=== PATIENT | male | born 1960 | race Caucasian/White ===

== ENCOUNTER → 2018-06-06 | Outpatient (CLI) | payer BC ==
[~2018-06-06] MED LIST: LIDOCAINE-MPF 1%, 5ML ONE; OMNIPAQUE 300 MG/ML, 10ML VIAL ONE; ROPivacaine/PF 0.2%, 10 ML ONE; SODIUM BICARBONATE 4.0%, 5ML ONE; SOTA160T13 PO; WARF10TA PO; WARF5TAB PO
== END | disposition home or self-care (01) ==
LOC: RAD 08:30
PROVIDERS: ATTEND Orthopaedic Surgery
DX: M75.111 Incomplete rotator cuff tear or rupture of right shoulder, not specified as traumatic (principal)
CPT/HCPCS: 73040; 73200; J2795; Q9967

== ENCOUNTER 2019-12-20 09:18 | Inpatient (IN) | payer BC, OTHER ==
[~2019-12-20] VITALS: Ht 175.3 cm; Wt 74.1 kg
[~2019-12-20 09:18] MED LIST changes: -LIDOCAINE-MPF 1%, 5ML ONE; -OMNIPAQUE 300 MG/ML, 10ML VIAL ONE; -ROPivacaine/PF 0.2%, 10 ML ONE; -SODIUM BICARBONATE 4.0%, 5ML ONE; -WARF5TAB PO; +WARF5TAB2 PO
[2019-12-20] MEDS ORDERED: LABETALOL 5MG/ML, 20ML IVPush ONE ×2 (09:30→10:30)
--- NOTE | 2019-12-20 09:30 | NUR ---
PT. ARRIVES BY [facility], AN IFT FROM [facility]. PT. IS A & O X 3 WITH A GCS OF 14. PT. HAS A 3 DAY HX OF [place] PAIN WITH INCREASING AMS SINCE LAST NOC. PT. WENT TO [facility] FOR EVALUATION AND WAS FOUND TO HAVE IN [facility]. HE WAS TRANSFERRED TO [facility] FOR A HIGHER LEVEL OF CARE AND NEUROSURGERY. PT.'S PUPILS ARE REACTIVE THE LEFT IS SLOWER THAN THE RIGHT. THE PT. STATES IT IS UNCOMFORTABLE FOR HIS TO OPEN HIS EYES WIDE. PT.'S SMILE IS SYMMETRICAL. HE IS ABLE TO HOLD HIS ARMS OUT WITHOUT EITHER DROPPING WELL HIS LEGS BILAT. HIS HAND GRASP ON THE LEFT IS SLIGHTLY WEAKER THAN THE RIGHT. PT.'S SENSATION IS INTACT THROUGHOUT. HIS LUNGS ARE CTA. MM ARE PINK AND MOIST WITH PULSES +2 THROUGHOUT. CAP REFILL IS BRISK, LESS THAN THREE SECONDS. PT.'S NECK IS MIDLINE WITHOUT JVD NOTED. CHEST RISE AND FALL IS SYMMETRICAL. S1 S2 NOTED WITHOUT MURMURS RUBS OR GALLOPS. PT. HAS AN INTERNAL PACEMAKER/DEFIBRILLATOR IN PLACE ON HIS LEFT CHEST. PT.'S ABD. IS SOFT AND FLAT WITH BS + X 4 QUADS. PT. IS ABLE TO MOVE ALL EXTREMITIES WNL. PT. DENIES PARATHESIA OR PAIN. THE PT. HAS THE CP MONITOR IN PLACE AND HIS HOB IS ELEVATED GREATER THAN 30 DEGREES. PT. HAS BLANKETS IN PLACE FOR WARMTH AND THE SIDERAILS ARE UP X 2. RN REMAINS AT THE BEDSIDE. THE PLAN OF CARE WAS DISCUSSED WITH THE PT. HAD HIS . NEUROSURG WARREN IS AT THE BEDSIDE CONSULTING. THE PT. WAS MEDICATED PER MD ORDERS AND A SECOND IV WAS ESTABLISHED. PT. ARRIVED WITH ONE IV IN PLACE AND PATENT, FROM THE SENDING FACILITY.
[2019-12-20] MEDS ORDERED: LABETALOL 5MG/ML, 20ML ONE ×2 (09:31→10:33)
[2019-12-20] MEDS ORDERED: NOVOSEVEN RT (FACTOR VIIA) RECOMB 1,000 MCG IVPush ONE (10:00)
[2019-12-20] MEDS ORDERED: BUPIVACAINE/PF-EPI 0.5% 1:200K ONE (10:08)
[2019-12-20] MEDS ORDERED: BACITRACIN OINT 500U/GM, 15 GM ONE (10:08)
--- NOTE | 2019-12-20 10:08 | NUR ---
PT. RETURNS FROM CT. PT. IS REMOVING HIS PULSE OX AND MASK. PT. WAS REORIENTED AND REMAINS MONITORED WITH THE HOB ELEVATED GREATER THAN 30 DEGREES. RN REMAINS AT THE BEDSIDE. PT. IS SPEAKING CLEAR SENTENCES AND FOLLOW COMMANDS CORRECTLY AT THIS TIME.
[2019-12-20] MEDS ORDERED: THROMBIN 20,000 UNIT VIAL TP ONE (10:09)
[2019-12-20] MEDS ORDERED: BACITRACIN 50,000 UNIT ONE (10:09)
--- NOTE | 2019-12-20 10:30 | NUR ---
PT. WAS MEDICATED ORDERED WITH FACTOR 7. BLOOD PRESSURE ADDRESSED. MEDS GIVEN PER ED MD ORDERS.
[2019-12-20] MEDS ORDERED: MIDAZOLAM 1 MG/ML, 2ML ONE (10:38)
[2019-12-20] MEDS ORDERED: FENTANYL PF 250 MCG/5ML ONE (10:39)
[2019-12-20 10:55] VITALS: BP 135/94
--- NOTE | 2019-12-20 11:01 | NUR ---
OR STAFF AT THE BEDSIDE TO TAKE THE PT. TO SURGERY. FFP WAS CHECKED BY 2 RNS. INTIAL VITALS STARTED. FOLLOW UP VITALS TO BE COMPLETED IN THE OR BY THE STAFF. CONSENT WAS OBTAINED PRIOR TO FFP BEING GIVEN. PT. CONDITION REMAINS UNCHANGED. PT. WAS TAKEN TO SURGERY AT THIS TIME.
[2019-12-20] MEDS ORDERED: SUCCINYLCHOLINE 20 MG/ML, 10ML ONE (11:55)
[2019-12-20] MEDS ORDERED: ONDANSETRON 2MG/ML, 2ML ONE (11:55)
[2019-12-20] MEDS ORDERED: PROPOFOL 10 MG/ML, 20ML ONE (11:55)
[2019-12-20] MEDS ORDERED: CEFAZOLIN 1,000 MG ONE (11:55)
[2019-12-20] MEDS ORDERED: DEXAMETHASONE 4 MG/ML, 1ML ONE (11:55)
[2019-12-20] MEDS ORDERED: SUGAMMADEX 200 MG/2 ML IVPush ONE (11:55)
[2019-12-20] MEDS ORDERED: ROCURONIUM 10MG/ML,5ML ONE (11:55)
[2019-12-20] MEDS ORDERED: NEOSTIGMINE 1 MG/ML, 10ML ONE (11:55)
[2019-12-20] MEDS ORDERED: GLYCOPYRROLATE 0.2MG/1ML, 5ML ONE (11:55)
[2019-12-20] MEDS ORDERED: OXYcodone 5 MG/5 ML ORAL.SOL UDC PO PRN (12:30)
[2019-12-20] MEDS ORDERED: ACETAMINOPHEN 325 MG TABLET PO PRN (12:30)
[2019-12-20] MEDS ORDERED: HYDROmorphone 1 MG/ML, 1ML INJ IVPush PRN (12:30)
[2019-12-20] MEDS ORDERED: FENTANYL PF 100 MCG/2ML IV PRN (12:30)
[2019-12-20] MEDS ORDERED: LABETALOL 5MG/ML, 20ML IV PRN (12:30)
[2019-12-20] MEDS ORDERED: PROMETHAZINE 25 MG/ML, 1ML IVPush PRN (12:30)
[2019-12-20] MEDS ORDERED: ONDANSETRON 2MG/ML, 2ML IVPush PRN ×2 (12:30→14:30)
[2019-12-20] MEDS ORDERED: PROMETHAZINE 25 MG SUPP PR PRN (12:30)
[2019-12-20] MEDS ORDERED: hydrALAzine 20 MG/ML, 1ML IV PRN (12:30)
[2019-12-20] MEDS ORDERED: OMNIPAQUE 350 MG/ML, 75ML BOTTLE ONE (13:42)
[2019-12-20] MEDS ORDERED: PLEASE ENTER HEIGHT MC SCH (14:30)
[2019-12-20] MEDS ORDERED: BISACODYL 10 MG SUPP PR PRN (14:30)
[2019-12-20 15:08] LABS: BASOPHILS % (AUTO) 0 % (0-1); EOSINOPHILS % (AUTO) 0 % (1-7); LYMPHOCYTES # (AUTO) 0.54 x10^3/uL (1-3.4); LYMPHOCYTES % (AUTO) 6 % (22-44); MD NO; MEAN CORPUSCULAR HEMOGLOBIN 30.3 pg (27.5-34.5); MEAN CORPUSCULAR HGB CONC 33.9 g/dL (33.2-36.2); MEAN CORPUSCULAR VOLUME 89.3 fL (81-97); MEAN PLATELET VOLUME 8.1 fL (7.4-10.4); MONOCYTES # (AUTO) 0.26 x10^3/uL (0.2-0.8); MONOCYTES % (AUTO) 3 % (2-9); NEUTROPHILS % (AUTO) 92 % (42-75); PLATELET COUNT 202 x10^3/uL (130-400); RED BLOOD COUNT 4.37 x10^6/uL (4.38-5.82); RED CELL DISTRIBUTION WIDTH 13.1 % (9.4-14.8)
[2019-12-20] MEDS: NS + 20MEQ KCL 1,000 ML IV SCH (15:09)
[2019-12-20 15:19] LABS: ANION GAP 7 mmol/L (5-15); CALCIUM 8.5 mg/dL (8.5-10.1); CHLORIDE 111 mmol/L (98-107); CREATININE 0.89 mg/dL (0.7-1.3)
[2019-12-20] MEDS: INSULIN LISPRO 100 UNITS/ML, PEN SQ-INSULIN SCH ×2 (15:37→21:00)
[2019-12-20 15:52] LABS: INTERNATIONAL NORMALIZED RATIO 1.24 (0.93-1.1); PROTHROMBIN TIME 13.2 Seconds (9.6-11.5)
[2019-12-20] MEDS ORDERED: LEVETIRACETAM 1,000 MG in SODIUM CHLORIDE 0.9% 100 ML IV ONE (17:30)
[2019-12-20] MEDS: SOTALOL 80MG TABLET PO SCH (17:30)
[2019-12-20] MEDS: CEFAZOLIN PMX 1GM/50ML 50 ML IVPB SCH (20:53)
[2019-12-20 22:23] LABS: INTERNATIONAL NORMALIZED RATIO 1.34 (0.93-1.1); PROTHROMBIN TIME 14.2 Seconds (9.6-11.5)
[2019-12-20] MEDS: ACETAMINOPHEN 325 MG TABLET PO PRN (22:45)
[2019-12-20] MEDS ORDERED: PHYTONADIONE 5 MG in SODIUM CHLORIDE 0.9% 50 ML IV ONE (23:30)
[2019-12-21] MEDS: NS + 20MEQ KCL 1,000 ML IV SCH ×2 (02:43→18:11)
[2019-12-21] MEDS: CEFAZOLIN PMX 1GM/50ML 50 ML IVPB SCH (04:17)
[2019-12-21] MEDS: SOTALOL 80MG TABLET PO SCH ×2 (04:17→18:04)
[2019-12-21] MEDS: LEVETIRACETAM 500 MG TABLET PO SCH ×3 (04:17→21:01)
[2019-12-21 04:30] VITALS: BP 132/80
[2019-12-21 04:38] LABS: BASOPHILS # (AUTO) 0.05 x10^3/uL (0-0.1); BASOPHILS % (AUTO) 0 % (0-1); EOSINOPHILS % (AUTO) 0 % (1-7); LYMPHOCYTES # (AUTO) 1.04 x10^3/uL (1-3.4); LYMPHOCYTES % (AUTO) 8 % (22-44); MD NO; MEAN CORPUSCULAR HEMOGLOBIN 30.2 pg (27.5-34.5); MEAN CORPUSCULAR HGB CONC 33.7 g/dL (33.2-36.2); MEAN CORPUSCULAR VOLUME 89.6 fL (81-97); MONOCYTES # (AUTO) 0.96 x10^3/uL (0.2-0.8); MONOCYTES % (AUTO) 8 % (2-9); NEUTROPHILS # (AUTO) 10.54 x10^3/uL (1.8-6.8); NEUTROPHILS % (AUTO) 84 % (42-75); PLATELET COUNT 203 x10^3/uL (130-400); RED CELL DISTRIBUTION WIDTH 13.6 % (9.4-14.8)
[2019-12-21 04:49] LABS: ALANINE AMINOTRANSFERASE 19 U/L (12-78); ALBUMIN 3.5 g/dL (3.4-5.0); ANION GAP 7 mmol/L (5-15); CALCIUM 8.3 mg/dL (8.5-10.1); CHLORIDE 111 mmol/L (98-107); CREATININE 0.76 mg/dL (0.7-1.3)
[2019-12-21 04:56] LABS: INTERNATIONAL NORMALIZED RATIO 1.22 (0.93-1.1)
[2019-12-21 04:59] LABS: ALKALINE PHOSPHATASE 52 U/L (45-117); BILIRUBIN,TOTAL 1.1 mg/dL (0.2-1.0); TOTAL PROTEIN 6.8 g/dL (6.4-8.2)
[2019-12-21] MEDS: INSULIN LISPRO 100 UNITS/ML, PEN SQ-INSULIN SCH ×2 (05:41→11:00)
[2019-12-21] MEDS: PANTOPRAZOLE 40 MG IV IVPush SCH (07:42)
[2019-12-21] MEDS: hydrALAzine 20 MG/ML, 1ML IVPush PRN (07:42)
[2019-12-21] MEDS ORDERED: CEFAZOLIN 2,000 MG in SODIUM CHLORIDE 0.9% 50 ML IV SCH (08:00)
[2019-12-21] MEDS ORDERED: CEFAZOLIN 1,000 MG IVPB SCH (08:00)
[2019-12-21] MEDS: ACETAMINOPHEN 325 MG TABLET PO PRN ×3 (09:11→23:58)
[2019-12-21] MEDS: SENNA/DOCUSATE TABLET PO SCH (09:11)
[2019-12-21] MEDS: LISINOPRIL 10 MG TABLET PO SCH ×2 (11:07→21:01)
[2019-12-21 11:13] LABS: INTERNATIONAL NORMALIZED RATIO 1.21 (0.93-1.1); PROTHROMBIN TIME 12.8 Seconds (9.6-11.5)
[2019-12-21] MEDS: CEFAZOLIN PMX 2GM/50ML 50 ML IVPB SCH ×2 (11:53→20:13)
[2019-12-21 16:15] LABS: INTERNATIONAL NORMALIZED RATIO 1.14 (0.93-1.1); PROTHROMBIN TIME 12.1 Seconds (9.6-11.5)
[2019-12-22] MEDS: hydrALAzine 20 MG/ML, 1ML IVPush PRN ×3 (03:12→22:27)
[2019-12-22] MEDS: CEFAZOLIN PMX 2GM/50ML 50 ML IVPB SCH ×3 (03:58→20:28)
[2019-12-22 04:00] VITALS: BP 142/76
[2019-12-22 05:02] LABS: BASOPHILS # (AUTO) 0.03 x10^3/uL (0-0.1); BASOPHILS % (AUTO) 0 % (0-1); EOSINOPHILS # (AUTO) 0.02 x10^3/uL (0-0.4); EOSINOPHILS % (AUTO) 0 % (1-7); LYMPHOCYTES # (AUTO) 1.35 x10^3/uL (1-3.4); LYMPHOCYTES % (AUTO) 13 % (22-44); MD NO; MEAN CORPUSCULAR HEMOGLOBIN 29.7 pg (27.5-34.5); MEAN PLATELET VOLUME 7.9 fL (7.4-10.4); MONOCYTES # (AUTO) 0.72 x10^3/uL (0.2-0.8); MONOCYTES % (AUTO) 7 % (2-9); NEUTROPHILS # (AUTO) 8.19 x10^3/uL (1.8-6.8); NEUTROPHILS % (AUTO) 80 % (42-75); PLATELET COUNT 208 x10^3/uL (130-400); RED BLOOD COUNT 4.49 x10^6/uL (4.38-5.82); RED CELL DISTRIBUTION WIDTH 13.2 % (9.4-14.8)
[2019-12-22] MEDS: NS + 20MEQ KCL 1,000 ML IV SCH (05:09)
[2019-12-22 05:23] LABS: INTERNATIONAL NORMALIZED RATIO 1.12 (0.93-1.1); PROTHROMBIN TIME 11.9 Seconds (9.6-11.5)
[2019-12-22] MEDS: SOTALOL 80MG TABLET PO SCH ×2 (05:49→16:32)
[2019-12-22 06:13] LABS: ANION GAP 10 mmol/L (5-15); CALCIUM 8.3 mg/dL (8.5-10.1); CHLORIDE 108 mmol/L (98-107); CREATININE 0.77 mg/dL (0.7-1.3)
[2019-12-22] MEDS: LEVETIRACETAM 500 MG TABLET PO SCH ×2 (09:16→20:26)
[2019-12-22] MEDS: LISINOPRIL 10 MG TABLET PO SCH ×2 (09:17→20:28)
[2019-12-22] MEDS: PANTOPRAZOLE 40 MG IV IVPush SCH (09:18)
[2019-12-22] MEDS: SENNA/DOCUSATE TABLET PO SCH (09:18)
[2019-12-22] MEDS: METHIMAZOLE 5 MG TAB PO SCH (12:12)
[2019-12-22 16:30] LABS: INTERNATIONAL NORMALIZED RATIO 1.1 (0.93-1.1); PROTHROMBIN TIME 11.7 Seconds (9.6-11.5)
[2019-12-22] MEDS: SODIUM CHLORIDE 1 GM TABLET PO SCH ×2 (16:33→20:26)
[2019-12-22] MEDS: LEVETIRACETAM 500 MG in SODIUM CHLORIDE 0.9% 100 ML IV SCH (19:00)
[2019-12-22] MEDS ORDERED: LEVETIRACETAM 100 MG/ML, 5ML IVPB SCH (19:00)
[2019-12-22] MEDS: HYDROcodone/APAP 10/325 MG TABLET PO PRN (20:28)
[2019-12-22 22:22] LABS: GLUCOSE, CSF 72 mg/dL (40-80)
[2019-12-22 22:25] LABS: TOTAL PROTEIN,CSF 126 mg/dL (15-45)
[2019-12-22 23:12] LABS: INTERNATIONAL NORMALIZED RATIO 1.08 (0.93-1.1); PROTHROMBIN TIME 11.5 Seconds (9.6-11.5)
[2019-12-23] MEDS: LABETALOL 5MG/ML, 20ML IVPush PRN ×2 (00:28→03:15)
[2019-12-23] MEDS: hydrALAzine 20 MG/ML, 1ML IVPush PRN (02:11)
[2019-12-23] MEDS: HYDROcodone/APAP 10/325 MG TABLET PO PRN (02:33)
[2019-12-23] MEDS: CEFAZOLIN PMX 2GM/50ML 50 ML IVPB SCH (03:52)
[2019-12-23 04:00] VITALS: BP 154/71
[2019-12-23] MEDS ORDERED: hydrALAzine 20 MG/ML, 1ML IV ONE (05:00)
[2019-12-23 05:26] LABS: BASOPHILS # (AUTO) 0.01 x10^3/uL (0-0.1); BASOPHILS % (AUTO) 0 % (0-1); EOSINOPHILS # (AUTO) 0.01 x10^3/uL (0-0.4); EOSINOPHILS % (AUTO) 0 % (1-7); LYMPHOCYTES % (AUTO) 9 % (22-44); MD NO; MEAN CORPUSCULAR HEMOGLOBIN 30.3 pg (27.5-34.5); MEAN CORPUSCULAR VOLUME 89.3 fL (81-97); MEAN PLATELET VOLUME 8.3 fL (7.4-10.4); MONOCYTES # (AUTO) 0.96 x10^3/uL (0.2-0.8); MONOCYTES % (AUTO) 9 % (2-9); NEUTROPHILS # (AUTO) 9.31 x10^3/uL (1.8-6.8); NEUTROPHILS % (AUTO) 83 % (42-75); PLATELET COUNT 232 x10^3/uL (130-400); RED BLOOD COUNT 4.57 x10^6/uL (4.38-5.82); RED CELL DISTRIBUTION WIDTH 13.4 % (9.4-14.8)
[2019-12-23] MEDS: SOTALOL 80MG TABLET PO SCH ×2 (06:21→17:44)
[2019-12-23] MEDS: LEVETIRACETAM 500 MG in SODIUM CHLORIDE 0.9% 100 ML IV SCH ×2 (07:00→20:28)
[2019-12-23] MEDS: SENNA/DOCUSATE TABLET PO SCH (09:09)
[2019-12-23] MEDS: PANTOPRAZOLE 40 MG IV IVPush SCH (09:09)
[2019-12-23] MEDS: LEVETIRACETAM 500 MG TABLET PO SCH ×2 (09:10→20:28)
[2019-12-23] MEDS: SODIUM CHLORIDE 1 GM TABLET PO SCH ×3 (09:10→21:21)
[2019-12-23] MEDS: LISINOPRIL 10 MG TABLET PO SCH ×2 (09:10→21:21)
[2019-12-23] MEDS: METHIMAZOLE 5 MG TAB PO SCH (09:10)
[2019-12-23] MEDS: MEROPENEM 1 GM in SODIUM CHLORIDE 0.9% 100 ML IV SCH ×2 (10:24→17:35)
[2019-12-23] MEDS: ACETAMINOPHEN 325 MG TABLET PO PRN ×2 (11:00→17:43)
[2019-12-23 11:09] LABS: ANION GAP 11 mmol/L (5-15); CALCIUM 8.7 mg/dL (8.5-10.1); CHLORIDE 100 mmol/L (98-107)
[2019-12-23] MEDS ORDERED: SODIUM CHLORIDE 0.9% 1,000 ML IV SCH (12:00)
[2019-12-23] MEDS ORDERED: SODIUM CHLORIDE 3% 500 ML IV PRN ×2 (12:00→17:30)
[2019-12-23] MEDS: SODIUM CHLORIDE 0.9% 1,000 ML IV SCH (14:19)
[2019-12-23] MEDS: MIDAZOLAM 1 MG/ML, 2ML IVPush PRN (15:00)
[2019-12-23] MEDS ORDERED: POTASSIUM CHLORIDE 20 MEQ in SODIUM CHLORIDE 0.9% 250 ML IV ONE (17:00)
[2019-12-23 21:22] LABS: MICROSCOPIC INDICATED
[2019-12-24] MEDS ORDERED: SODIUM CHLORIDE 3% 500 ML IV PRN ×5 (01:09→21:00)
[2019-12-24] MEDS: MEROPENEM 1 GM in SODIUM CHLORIDE 0.9% 100 ML IV SCH ×3 (01:41→16:52)
[2019-12-24] MEDS: ACETAMINOPHEN 325 MG TABLET PO PRN ×4 (02:06→21:15)
[2019-12-24] MEDS: MIDAZOLAM 1 MG/ML, 2ML IVPush PRN (03:48)
[2019-12-24 04:00] VITALS: BP 117/78
[2019-12-24 05:52] LABS: ANION GAP 8 mmol/L (5-15); CALCIUM 7.8 mg/dL (8.5-10.1); CHLORIDE 108 mmol/L (98-107)
[2019-12-24 05:53] LABS: CREATININE 0.77 mg/dL (0.7-1.3)
[2019-12-24 07:05] LABS: BASOPHILS # (AUTO) 0.03 x10^3/uL (0-0.1); BASOPHILS % (AUTO) 0 % (0-1); EOSINOPHILS # (AUTO) 0.03 x10^3/uL (0-0.4); EOSINOPHILS % (AUTO) 0 % (1-7); LYMPHOCYTES # (AUTO) 1.23 x10^3/uL (1-3.4); LYMPHOCYTES % (AUTO) 14 % (22-44); MD NO; MEAN CORPUSCULAR HEMOGLOBIN 30.2 pg (27.5-34.5); MEAN CORPUSCULAR HGB CONC 33.8 g/dL (33.2-36.2); MEAN CORPUSCULAR VOLUME 89.5 fL (81-97); MEAN PLATELET VOLUME 7.7 fL (7.4-10.4); MONOCYTES # (AUTO) 1.03 x10^3/uL (0.2-0.8); MONOCYTES % (AUTO) 12 % (2-9); NEUTROPHILS # (AUTO) 6.34 x10^3/uL (1.8-6.8); NEUTROPHILS % (AUTO) 73 % (42-75); PLATELET COUNT 217 x10^3/uL (130-400); RED CELL DISTRIBUTION WIDTH 13.3 % (9.4-14.8)
[2019-12-24] MEDS: SOTALOL 80MG TABLET PO SCH ×2 (07:36→16:51)
[2019-12-24] MEDS: METHIMAZOLE 5 MG TAB PO SCH (07:36)
[2019-12-24] MEDS: LEVETIRACETAM 500 MG TABLET PO SCH ×2 (07:36→20:15)
[2019-12-24] MEDS: SODIUM CHLORIDE 1 GM TABLET PO SCH ×3 (07:36→21:10)
[2019-12-24] MEDS: SENNA/DOCUSATE TABLET PO SCH (07:36)
[2019-12-24] MEDS: LISINOPRIL 10 MG TABLET PO SCH ×2 (07:37→21:11)
[2019-12-24] MEDS: LEVETIRACETAM 500 MG in SODIUM CHLORIDE 0.9% 100 ML IV SCH ×2 (07:37→20:13)
[2019-12-24] MEDS: PANTOPRAZOLE 40 MG IV IVPush SCH (07:37)
[2019-12-24] MEDS: SODIUM CHLORIDE 0.9% 1,000 ML IV SCH (08:33)
[2019-12-24 11:44] LABS: INTERNATIONAL NORMALIZED RATIO 1.13 (0.93-1.1)
[2019-12-24] MEDS: hydrALAzine 20 MG/ML, 1ML IVPush PRN (18:35)
[2019-12-25] MEDS: MEROPENEM 1 GM in SODIUM CHLORIDE 0.9% 100 ML IV SCH (01:36)
[2019-12-25] MEDS: SODIUM CHLORIDE 0.9% 1,000 ML IV SCH (03:43)
[2019-12-25] MEDS: ACETAMINOPHEN 325 MG TABLET PO PRN (03:46)
[2019-12-25 04:00] VITALS: BP 158/96
[2019-12-25] MEDS: hydrALAzine 20 MG/ML, 1ML IVPush PRN (04:08)
[2019-12-25] MEDS ORDERED: SODIUM CHLORIDE 3% 500 ML IV PRN ×2 (04:46→14:00)
[2019-12-25] MEDS: SOTALOL 80MG TABLET PO SCH ×2 (05:57→16:39)
[2019-12-25] MEDS: PANTOPRAZOLE 40 MG IV IVPush SCH (07:56)
[2019-12-25] MEDS: LEVETIRACETAM 500 MG in SODIUM CHLORIDE 0.9% 100 ML IV SCH ×2 (07:57→21:23)
[2019-12-25] MEDS: LEVETIRACETAM 500 MG TABLET PO SCH ×2 (07:58→21:00)
[2019-12-25] MEDS: LISINOPRIL 10 MG TABLET PO SCH ×2 (08:23→20:43)
[2019-12-25] MEDS: SODIUM CHLORIDE 1 GM TABLET PO SCH ×3 (08:23→20:43)
[2019-12-25] MEDS: SENNA/DOCUSATE TABLET PO SCH (08:23)
[2019-12-25] MEDS: METHIMAZOLE 5 MG TAB PO SCH (08:37)
[2019-12-25] MEDS: SODIUM CHLORIDE 3% 500 ML IV PRN (21:49)
[2019-12-25] MEDS: FENTANYL PF 100 MCG/2ML IVPush PRN (21:54)
[2019-12-26] MEDS: hydrALAzine 20 MG/ML, 1ML IVPush PRN (02:12)
[2019-12-26] MEDS: MIDAZOLAM 1 MG/ML, 2ML IVPush PRN (03:51)
[2019-12-26 04:00] VITALS: BP 161/101
[2019-12-26] MEDS: LABETALOL 5MG/ML, 20ML IVPush PRN (04:35)
[2019-12-26] MEDS: SODIUM CHLORIDE 3% 500 ML IV PRN ×3 (05:39→20:01)
[2019-12-26] MEDS: SOTALOL 80MG TABLET PO SCH ×2 (05:50→17:03)
[2019-12-26] MEDS: FENTANYL PF 100 MCG/2ML IVPush PRN (05:52)
[2019-12-26] MEDS: METHIMAZOLE 5 MG TAB PO SCH (08:32)
[2019-12-26] MEDS: LISINOPRIL 10 MG TABLET PO SCH ×2 (08:33→20:39)
[2019-12-26] MEDS: LEVETIRACETAM 500 MG TABLET PO SCH ×2 (08:33→20:39)
[2019-12-26] MEDS: DOXAZOSIN 2MG TABLET PO SCH (08:33)
[2019-12-26] MEDS: SENNA/DOCUSATE TABLET PO SCH (08:33)
[2019-12-26] MEDS: HYDROcodone/APAP 10/325 MG TABLET PO PRN (08:48)
[2019-12-26] MEDS: SODIUM CHLORIDE 1 GM TABLET PO SCH ×3 (11:56→20:39)
[2019-12-26] MEDS: ACETAMINOPHEN 325 MG TABLET PO PRN (17:08)
[2019-12-26] MEDS: CEFAZOLIN 2,000 MG in SODIUM CHLORIDE 0.9% 50 ML IV SCH (20:35)
[2019-12-27] MEDS: HYDROcodone/APAP 10/325 MG TABLET PO PRN ×4 (01:51→21:38)
[2019-12-27 04:00] VITALS: BP 112/72
[2019-12-27] MEDS: SODIUM CHLORIDE 3% 500 ML IV PRN ×2 (04:30→13:41)
[2019-12-27 04:48] LABS: BASOPHILS # (AUTO) 0.01 x10^3/uL (0-0.1); BASOPHILS % (AUTO) 0 % (0-1); EOSINOPHILS # (AUTO) 0.18 x10^3/uL (0-0.4); EOSINOPHILS % (AUTO) 2 % (1-7); LYMPHOCYTES # (AUTO) 0.78 x10^3/uL (1-3.4); LYMPHOCYTES % (AUTO) 10 % (22-44); MD NO; MEAN CORPUSCULAR HEMOGLOBIN 29.8 pg (27.5-34.5); MEAN CORPUSCULAR VOLUME 90.3 fL (81-97); MEAN PLATELET VOLUME 7.7 fL (7.4-10.4); MONOCYTES # (AUTO) 0.83 x10^3/uL (0.2-0.8); MONOCYTES % (AUTO) 10 % (2-9); NEUTROPHILS # (AUTO) 6.34 x10^3/uL (1.8-6.8); NEUTROPHILS % (AUTO) 78 % (42-75); PLATELET COUNT 210 x10^3/uL (130-400); RED BLOOD COUNT 4.01 x10^6/uL (4.38-5.82)
[2019-12-27] MEDS: MIDAZOLAM 1 MG/ML, 2ML IVPush PRN (04:56)
[2019-12-27 05:00] LABS: ANION GAP 5 mmol/L (5-15); CALCIUM 7.6 mg/dL (8.5-10.1); CHLORIDE 113 mmol/L (98-107); CREATININE 0.62 mg/dL (0.7-1.3)
[2019-12-27] MEDS: CEFAZOLIN 2,000 MG in SODIUM CHLORIDE 0.9% 50 ML IV SCH ×3 (05:05→21:29)
[2019-12-27] MEDS: SOTALOL 80MG TABLET PO SCH ×2 (05:55→18:08)
[2019-12-27] MEDS: SODIUM CHLORIDE 1 GM TABLET PO SCH ×4 (05:55→21:28)
[2019-12-27] MEDS: LEVETIRACETAM 500 MG TABLET PO SCH ×2 (08:22→21:29)
[2019-12-27] MEDS: METHIMAZOLE 5 MG TAB PO SCH (08:22)
[2019-12-27] MEDS: DOXAZOSIN 2MG TABLET PO SCH (08:22)
[2019-12-27] MEDS: POTASSIUM CHLORIDE 20 MEQ TAB.ER.PRT PO SCH ×2 (08:22→16:21)
[2019-12-27] MEDS: SENNA/DOCUSATE TABLET PO SCH (08:23)
[2019-12-27] MEDS: LISINOPRIL 10 MG TABLET PO SCH ×2 (08:23→21:29)
[2019-12-28] MEDS: SODIUM CHLORIDE 3% 500 ML IV PRN ×3 (01:08→21:19)
[2019-12-28] MEDS: MIDAZOLAM 1 MG/ML, 2ML IVPush PRN (02:00)
[2019-12-28 04:00] VITALS: BP 147/93
[2019-12-28] MEDS: HYDROcodone/APAP 10/325 MG TABLET PO PRN ×2 (04:34→23:23)
[2019-12-28] MEDS: SODIUM CHLORIDE 1 GM TABLET PO SCH ×4 (04:34→21:18)
[2019-12-28] MEDS: SOTALOL 80MG TABLET PO SCH ×2 (04:34→17:58)
[2019-12-28 05:03] LABS: ANION GAP 6 mmol/L (5-15); CALCIUM 8.3 mg/dL (8.5-10.1); CHLORIDE 111 mmol/L (98-107); CREATININE 0.64 mg/dL (0.7-1.3)
[2019-12-28] MEDS: CEFAZOLIN 2,000 MG in SODIUM CHLORIDE 0.9% 50 ML IV SCH ×2 (05:33→13:07)
[2019-12-28 08:28] LABS: INTERNATIONAL NORMALIZED RATIO 1.14 (0.93-1.1); PROTHROMBIN TIME 12.1 Seconds (9.6-11.5)
[2019-12-28] MEDS ORDERED: POTASSIUM CHLORIDE 10% 40 MEQ/30 ML UDC PO SCH (09:00)
[2019-12-28] MEDS: METHIMAZOLE 5 MG TAB PO SCH (09:16)
[2019-12-28] MEDS: LISINOPRIL 10 MG TABLET PO SCH ×2 (09:16→21:18)
[2019-12-28] MEDS: LEVETIRACETAM 500 MG TABLET PO SCH ×2 (09:17→21:17)
[2019-12-28] MEDS: DOXAZOSIN 2MG TABLET PO SCH (09:17)
[2019-12-28] MEDS: SENNA/DOCUSATE TABLET PO SCH (09:17)
[2019-12-28] MEDS: POTASSIUM CHLORIDE 20 MEQ TAB.ER.PRT PO SCH ×2 (09:17→17:59)
[2019-12-28] MEDS: CEFAZOLIN PMX 2GM/50ML 50 ML IVPB SCH (21:17)
[2019-12-28] MEDS: hydrALAzine 20 MG/ML, 1ML IVPush PRN (23:23)
[2019-12-29 04:00] VITALS: BP 146/82
[2019-12-29 04:32] LABS: ANION GAP 8 mmol/L (5-15); CALCIUM 8.3 mg/dL (8.5-10.1); CHLORIDE 111 mmol/L (98-107); CREATININE 0.57 mg/dL (0.7-1.3)
[2019-12-29] MEDS: hydrALAzine 20 MG/ML, 1ML IVPush PRN ×3 (05:04→21:39)
[2019-12-29] MEDS: CEFAZOLIN PMX 2GM/50ML 50 ML IVPB SCH ×3 (05:04→21:38)
[2019-12-29] MEDS: FENTANYL PF 100 MCG/2ML IVPush PRN (05:04)
[2019-12-29] MEDS: SOTALOL 80MG TABLET PO SCH ×2 (05:37→17:20)
[2019-12-29] MEDS: SODIUM CHLORIDE 1 GM TABLET PO SCH ×4 (05:37→21:38)
[2019-12-29] MEDS: SODIUM CHLORIDE 3% 500 ML IV PRN ×2 (06:28→15:32)
[2019-12-29] MEDS ORDERED: MANNITOL PMX 20% 0 ML ONE ×2 (06:35→06:51)
[2019-12-29] MEDS ORDERED: FUROSEMIDE 20 MG/2 ML ONE ×2 (06:36→06:51)
[2019-12-29] MEDS ORDERED: FENTANYL PF 250 MCG/5ML ONE (06:37)
[2019-12-29] MEDS ORDERED: PROPOFOL 50 ML ONE (06:39)
[2019-12-29] MEDS ORDERED: PHENYLEPHRINE 10 MG/ML ONE (06:43)
[2019-12-29] MEDS ORDERED: PROPOFOL 10 MG/ML, 20ML ONE (06:46)
[2019-12-29] MEDS ORDERED: CEFAZOLIN 1,000 MG ONE ×2 (06:46)
[2019-12-29] MEDS ORDERED: ROCURONIUM 10MG/ML,5ML ONE (06:46)
[2019-12-29] MEDS ORDERED: BACITRACIN OINT 500U/GM, 15 GM ONE (06:51)
[2019-12-29] MEDS ORDERED: BUPIVACAINE/PF-EPI 0.5% 1:200K ONE (06:51)
[2019-12-29] MEDS ORDERED: DEXAMETHASONE 4 MG/ML, 5ML ONE (06:51)
[2019-12-29] MEDS ORDERED: BACITRACIN 50,000 UNIT ONE (06:51)
[2019-12-29] MEDS ORDERED: THROMBIN 20,000 UNIT VIAL TP ONE (06:51)
[2019-12-29] MEDS ORDERED: LABETALOL 5MG/ML, 20ML IV PRN (07:30)
[2019-12-29] MEDS ORDERED: ACETAMINOPHEN 325 MG TABLET PO PRN (07:30)
[2019-12-29] MEDS ORDERED: morphine SULFATE 10 MG/ML, 1ML IVPush PRN (07:30)
[2019-12-29] MEDS ORDERED: LEVETIRACETAM 1,000 MG in SODIUM CHLORIDE 0.9% 100 ML IV ONE (07:30)
[2019-12-29] MEDS ORDERED: HYDROmorphone 1 MG/ML, 1ML INJ IVPush PRN (07:30)
[2019-12-29] MEDS ORDERED: hydrALAzine 20 MG/ML, 1ML IV PRN (07:30)
[2019-12-29] MEDS ORDERED: OXYcodone 5 MG/5 ML ORAL.SOL UDC PO PRN (07:30)
[2019-12-29] MEDS ORDERED: ONDANSETRON 2MG/ML, 2ML IVPush PRN (07:30)
[2019-12-29] MEDS ORDERED: FENTANYL PF 100 MCG/2ML IV PRN ×2 (07:30→11:30)
[2019-12-29] MEDS ORDERED: VASOPRESSIN 20 UNIT/ML, 1ML ONE (08:07)
[2019-12-29] MEDS: LEVETIRACETAM 500 MG TABLET PO SCH ×2 (09:00→21:39)
[2019-12-29] MEDS: SENNA/DOCUSATE TABLET PO SCH (09:00)
[2019-12-29] MEDS: METHIMAZOLE 5 MG TAB PO SCH (09:00)
[2019-12-29] MEDS ORDERED: BUPIVACAINE/PF-EPI 0.5% 1:200K INFIL ONE (09:04)
[2019-12-29] MEDS ORDERED: SUGAMMADEX 200 MG/2 ML IVPush ONE (09:30)
[2019-12-29] MEDS ORDERED: FENTANYL PF 100 MCG/2ML ONE (10:28)
[2019-12-29] MEDS: LABETALOL 5MG/ML, 20ML IVPush PRN ×2 (11:18→14:10)
[2019-12-29] MEDS ORDERED: DIPHENHYDRAMINE 50 MG/ML, 1ML IM PRN (11:30)
[2019-12-29] MEDS ORDERED: ONDANSETRON 2MG/ML, 2ML IV PRN (11:30)
[2019-12-29] MEDS ORDERED: LABETALOL 250 MG in DEXTROSE 5% 200 ML IV PRN (11:30)
[2019-12-29] MEDS ORDERED: DIPHENHYDRAMINE 50 MG/ML, 1ML IV PRN (11:30)
[2019-12-29] MEDS ORDERED: ACETAMINOPHEN 650 MG SUPP ONE (12:01)
[2019-12-29] MEDS: FENTANYL PF 100 MCG/2ML IV PRN (12:48)
[2019-12-29] MEDS: HYDROcodone/APAP 10/325 MG TABLET PO PRN ×3 (14:45→21:39)
[2019-12-29] MEDS: DOXAZOSIN 2MG TABLET PO SCH (14:45)
[2019-12-29] MEDS: LISINOPRIL 10 MG TABLET PO SCH ×2 (14:46→21:38)
[2019-12-29] MEDS: INSULIN REGULAR 100 UNITS/ML, 3ML VIAL SQ-INSULIN SCH ×2 (16:00→21:51)
[2019-12-29] MEDS ORDERED: CEFAZOLIN PMX 2GM/50ML 50 ML IVPB SCH (16:00)
[2019-12-29] MEDS: POTASSIUM CHLORIDE 20 MEQ TAB.ER.PRT PO SCH ×2 (17:00→17:21)
[2019-12-30] MEDS: SODIUM CHLORIDE 3% 500 ML IV PRN ×3 (01:29→20:07)
[2019-12-30 04:00] VITALS: BP 154/72
[2019-12-30] MEDS: HYDROcodone/APAP 10/325 MG TABLET PO PRN ×4 (04:09→22:23)
[2019-12-30] MEDS: FENTANYL PF 100 MCG/2ML IV PRN (04:09)
[2019-12-30 04:24] LABS: BASOPHILS % (AUTO) 0 % (0-1); EOSINOPHILS # (AUTO) 0.01 x10^3/uL (0-0.4); EOSINOPHILS % (AUTO) 0 % (1-7); LYMPHOCYTES # (AUTO) 0.54 x10^3/uL (1-3.4); LYMPHOCYTES % (AUTO) 5 % (22-44); MD NO; MEAN CORPUSCULAR HEMOGLOBIN 30.7 pg (27.5-34.5); MEAN CORPUSCULAR VOLUME 90.1 fL (81-97); MEAN PLATELET VOLUME 7.2 fL (7.4-10.4); MONOCYTES # (AUTO) 0.79 x10^3/uL (0.2-0.8); MONOCYTES % (AUTO) 7 % (2-9); NEUTROPHILS # (AUTO) 9.61 x10^3/uL (1.8-6.8); NEUTROPHILS % (AUTO) 88 % (42-75); PLATELET COUNT 196 x10^3/uL (130-400); RED BLOOD COUNT 3.78 x10^6/uL (4.38-5.82); RED CELL DISTRIBUTION WIDTH 13.9 % (9.4-14.8)
[2019-12-30 04:33] LABS: ANION GAP 8 mmol/L (5-15); CALCIUM 8.1 mg/dL (8.5-10.1); CHLORIDE 112 mmol/L (98-107); CREATININE 0.61 mg/dL (0.7-1.3)
[2019-12-30] MEDS: SOTALOL 80MG TABLET PO SCH ×2 (06:02→16:51)
[2019-12-30] MEDS: SODIUM CHLORIDE 1 GM TABLET PO SCH ×4 (06:02→20:12)
[2019-12-30] MEDS: CEFAZOLIN PMX 2GM/50ML 50 ML IVPB SCH ×3 (06:03→20:06)
[2019-12-30] MEDS ORDERED: MAGNESIUM SULFATE PMX 2GM/50ML 50 ML IV ONE (07:30)
[2019-12-30] MEDS: SENNA/DOCUSATE TABLET PO SCH (09:51)
[2019-12-30] MEDS: LEVETIRACETAM 500 MG TABLET PO SCH ×2 (09:52→20:12)
[2019-12-30] MEDS: DOXAZOSIN 2MG TABLET PO SCH (09:52)
[2019-12-30] MEDS: METHIMAZOLE 5 MG TAB PO SCH (09:52)
[2019-12-30] MEDS: POTASSIUM CHLORIDE 20 MEQ TAB.ER.PRT PO SCH ×2 (09:53→16:51)
[2019-12-30] MEDS: LISINOPRIL 10 MG TABLET PO SCH ×2 (09:53→20:11)
[2019-12-30] MEDS: LABETALOL 5MG/ML, 20ML IVPush PRN (11:18)
[2019-12-31] MEDS: hydrALAzine 20 MG/ML, 1ML IVPush PRN ×3 (01:46→23:12)
[2019-12-31] MEDS: LABETALOL 5MG/ML, 20ML IVPush PRN (03:37)
[2019-12-31 04:00] VITALS: BP 165/81
[2019-12-31] MEDS: HYDROcodone/APAP 10/325 MG TABLET PO PRN ×3 (04:07→17:33)
[2019-12-31] MEDS: CEFAZOLIN PMX 2GM/50ML 50 ML IVPB SCH ×3 (05:29→21:09)
[2019-12-31] MEDS: SODIUM CHLORIDE 3% 500 ML IV PRN (05:29)
[2019-12-31 06:11] LABS: BASOPHILS # (AUTO) 0.01 x10^3/uL (0-0.1); BASOPHILS % (AUTO) 0 % (0-1); EOSINOPHILS # (AUTO) 0.09 x10^3/uL (0-0.4); EOSINOPHILS % (AUTO) 1 % (1-7); LYMPHOCYTES # (AUTO) 0.71 x10^3/uL (1-3.4); LYMPHOCYTES % (AUTO) 7 % (22-44); MD NO; MEAN CORPUSCULAR HGB CONC 33.1 g/dL (33.2-36.2); MEAN CORPUSCULAR VOLUME 90.6 fL (81-97); MEAN PLATELET VOLUME 7.8 fL (7.4-10.4); MONOCYTES # (AUTO) 0.71 x10^3/uL (0.2-0.8); MONOCYTES % (AUTO) 7 % (2-9); NEUTROPHILS # (AUTO) 9.22 x10^3/uL (1.8-6.8); NEUTROPHILS % (AUTO) 86 % (42-75); PLATELET COUNT 193 x10^3/uL (130-400); RED BLOOD COUNT 3.57 x10^6/uL (4.38-5.82); RED CELL DISTRIBUTION WIDTH 13.9 % (9.4-14.8)
[2019-12-31 06:13] LABS: ANION GAP 6 mmol/L (5-15); CALCIUM 7.8 mg/dL (8.5-10.1); CHLORIDE 115 mmol/L (98-107)
[2019-12-31 06:15] LABS: CREATININE 0.57 mg/dL (0.7-1.3)
[2019-12-31] MEDS: SODIUM CHLORIDE 1 GM TABLET PO SCH ×4 (06:51→20:21)
[2019-12-31] MEDS: SOTALOL 80MG TABLET PO SCH ×2 (06:51→16:12)
[2019-12-31] MEDS ORDERED: LIDOCAINE 1%, 20ML ONE (08:00)
[2019-12-31] MEDS ORDERED: CEFAZOLIN 2,000 MG in SODIUM CHLORIDE 0.9% 50 ML IV SCH (08:30)
[2019-12-31] MEDS: LISINOPRIL 40 MG TABLET PO SCH ×2 (10:00→20:21)
[2019-12-31] MEDS: SENNA/DOCUSATE TABLET PO SCH (10:00)
[2019-12-31] MEDS: LEVETIRACETAM 500 MG TABLET PO SCH ×2 (10:00→20:21)
[2019-12-31] MEDS: DOXAZOSIN 2MG TABLET PO SCH (10:01)
[2019-12-31] MEDS: METHIMAZOLE 5 MG TAB PO SCH (10:01)
[2019-12-31] MEDS: POTASSIUM CHLORIDE 20 MEQ TAB.ER.PRT PO SCH ×2 (10:02→16:12)
[2019-12-31] MEDS: ACETAMINOPHEN 325 MG TABLET PO PRN (23:14)
[2020-01-01] MEDS: hydrALAzine 20 MG/ML, 1ML IVPush PRN (04:23)
[2020-01-01 04:33] LABS: ANION GAP 6 mmol/L (5-15); CALCIUM 7.9 mg/dL (8.5-10.1); CHLORIDE 111 mmol/L (98-107); CREATININE 0.46 mg/dL (0.7-1.3)
[2020-01-01] MEDS: CEFAZOLIN PMX 2GM/50ML 50 ML IVPB SCH ×3 (06:13→22:12)
[2020-01-01] MEDS: SODIUM CHLORIDE 1 GM TABLET PO SCH ×5 (06:14→23:37)
[2020-01-01] MEDS: SOTALOL 80MG TABLET PO SCH ×2 (06:14→17:17)
[2020-01-01 06:18] VITALS: BP 143/87
[2020-01-01] MEDS ORDERED: MAGNESIUM SULFATE PMX 2GM/50ML 50 ML IV ONE (08:00)
[2020-01-01] MEDS: SENNA/DOCUSATE TABLET PO SCH (08:30)
[2020-01-01] MEDS: DOXAZOSIN 2MG TABLET PO SCH (08:31)
[2020-01-01] MEDS: POTASSIUM CHLORIDE 20 MEQ TAB.ER.PRT PO SCH ×2 (08:31→15:46)
[2020-01-01] MEDS: LEVETIRACETAM 500 MG TABLET PO SCH ×2 (08:31→20:24)
[2020-01-01] MEDS: METHIMAZOLE 5 MG TAB PO SCH (08:31)
[2020-01-01] MEDS: AMLODIPINE 5 MG TABLET PO SCH (08:31)
[2020-01-01] MEDS: LISINOPRIL 40 MG TABLET PO SCH ×2 (08:31→20:24)
[2020-01-01] MEDS: ACETAMINOPHEN 325 MG TABLET PO PRN (11:18)
[2020-01-01 11:39] LABS: BASOPHILS # (AUTO) 0.02 x10^3/uL (0-0.1); BASOPHILS % (AUTO) 0 % (0-1); EOSINOPHILS # (AUTO) 0.27 x10^3/uL (0-0.4); EOSINOPHILS % (AUTO) 2 % (1-7); LYMPHOCYTES # (AUTO) 0.75 x10^3/uL (1-3.4); LYMPHOCYTES % (AUTO) 7 % (22-44); MD NO; MEAN CORPUSCULAR HEMOGLOBIN 30.1 pg (27.5-34.5); MEAN CORPUSCULAR HGB CONC 33.4 g/dL (33.2-36.2); MEAN CORPUSCULAR VOLUME 90.1 fL (81-97); MEAN PLATELET VOLUME 7.7 fL (7.4-10.4); MONOCYTES # (AUTO) 0.73 x10^3/uL (0.2-0.8); MONOCYTES % (AUTO) 7 % (2-9); NEUTROPHILS # (AUTO) 9.33 x10^3/uL (1.8-6.8); NEUTROPHILS % (AUTO) 84 % (42-75); PLATELET COUNT 233 x10^3/uL (130-400); RED BLOOD COUNT 3.72 x10^6/uL (4.38-5.82); RED CELL DISTRIBUTION WIDTH 14.5 % (9.4-14.8)
[2020-01-01 11:50] LABS: ALANINE AMINOTRANSFERASE 19 U/L (12-78); ALBUMIN 2.7 g/dL (3.4-5.0); ANION GAP 6 mmol/L (5-15); CALCIUM 8.3 mg/dL (8.5-10.1); CHLORIDE 110 mmol/L (98-107)
[2020-01-01 11:52] LABS: ALKALINE PHOSPHATASE 76 U/L (45-117); BILIRUBIN,TOTAL 0.7 mg/dL (0.2-1.0); TOTAL PROTEIN 6.3 g/dL (6.4-8.2)
[2020-01-01] MEDS ORDERED: WARFARIN MECH. VALVE PROTOCOL 2.5 to 3.5 XX PRN (15:00)
[2020-01-01] MEDS ORDERED: SODIUM CHLORIDE 0.9% 1,000ML IVBOLUS ONE (15:00)
[2020-01-01 15:36] LABS: INTERNATIONAL NORMALIZED RATIO 1.11 (0.93-1.1); PROTHROMBIN TIME 11.8 Seconds (9.6-11.5)
[2020-01-01] MEDS: HEPARIN 25,000 UNITS/250ML PMX 250 ML IV PRN (17:17)
[2020-01-01] MEDS ORDERED: WARFARIN 5 MG TABLET PO-COUM ONE (18:00)
[2020-01-01] MEDS ORDERED: WARFARIN 10 MG TABLET PO-COUM ONE (18:00)
[2020-01-01] MEDS: BACITRACIN OINT 500U/GM, 28GM TP SCH (20:24)
[2020-01-02] MEDS: hydrALAzine 20 MG/ML, 1ML IVPush PRN ×2 (00:09→10:07)
[2020-01-02] MEDS: HEPARIN 5,000 UNITS/ML, 1ML IV PRN ×3 (00:09→22:05)
[2020-01-02] MEDS: ACETAMINOPHEN 325 MG TABLET PO PRN ×2 (02:33→10:12)
[2020-01-02] MEDS: SODIUM CHLORIDE 1 GM TABLET PO SCH ×5 (03:35→22:04)
[2020-01-02 04:00] VITALS: BP 139/81
[2020-01-02 05:04] LABS: BASOPHILS # (AUTO) 0.02 x10^3/uL (0-0.1); BASOPHILS % (AUTO) 0 % (0-1); EOSINOPHILS # (AUTO) 0.16 x10^3/uL (0-0.4); EOSINOPHILS % (AUTO) 2 % (1-7); INTERNATIONAL NORMALIZED RATIO 1.21 (0.93-1.1); LYMPHOCYTES # (AUTO) 1.21 x10^3/uL (1-3.4); LYMPHOCYTES % (AUTO) 16 % (22-44); MD NO; MEAN CORPUSCULAR HEMOGLOBIN 30.1 pg (27.5-34.5); MEAN CORPUSCULAR HGB CONC 33.4 g/dL (33.2-36.2); MEAN CORPUSCULAR VOLUME 90.2 fL (81-97); MEAN PLATELET VOLUME 7.8 fL (7.4-10.4); MONOCYTES # (AUTO) 0.44 x10^3/uL (0.2-0.8); MONOCYTES % (AUTO) 6 % (2-9); NEUTROPHILS # (AUTO) 5.54 x10^3/uL (1.8-6.8); NEUTROPHILS % (AUTO) 75 % (42-75); PLATELET COUNT 215 x10^3/uL (130-400); PROTHROMBIN TIME 12.9 Seconds (9.6-11.5); RED BLOOD COUNT 3.45 x10^6/uL (4.38-5.82)
[2020-01-02 05:07] LABS: ANION GAP 9 mmol/L (5-15); CALCIUM 7.7 mg/dL (8.5-10.1); CHLORIDE 106 mmol/L (98-107); CREATININE 0.52 mg/dL (0.7-1.3)
[2020-01-02] MEDS: CEFAZOLIN PMX 2GM/50ML 50 ML IVPB SCH ×3 (06:11→22:04)
[2020-01-02] MEDS: SOTALOL 80MG TABLET PO SCH ×2 (06:12→16:36)
[2020-01-02] MEDS ORDERED: POTASSIUM CHLORIDE 40 MEQ in SODIUM CHLORIDE 0.9% 500 ML IV ONE (06:30)
[2020-01-02] MEDS: POTASSIUM CHLORIDE 20 MEQ TAB.ER.PRT PO SCH ×2 (08:00→16:36)
[2020-01-02] MEDS ORDERED: POTASSIUM CHLORIDE 10% 40 MEQ/30 ML UDC ONE (08:55)
[2020-01-02] MEDS: METHIMAZOLE 5 MG TAB PO SCH (09:01)
[2020-01-02] MEDS: DOXAZOSIN 2MG TABLET PO SCH (09:01)
[2020-01-02] MEDS: LEVETIRACETAM 500 MG TABLET PO SCH ×2 (09:02→22:04)
[2020-01-02] MEDS: HYDROcodone/APAP 10/325 MG TABLET PO PRN (09:02)
[2020-01-02] MEDS: LISINOPRIL 40 MG TABLET PO SCH ×2 (09:02→22:04)
[2020-01-02] MEDS: AMLODIPINE 5 MG TABLET PO SCH (09:02)
[2020-01-02] MEDS: SENNA/DOCUSATE TABLET PO SCH (09:03)
[2020-01-02] MEDS: BACITRACIN OINT 500U/GM, 28GM TP SCH ×2 (09:03→22:04)
[2020-01-02 11:01] LABS: MICROSCOPIC NOT IND
[2020-01-02] MEDS ORDERED: POTASSIUM CHLORIDE 10% 40 MEQ/30 ML UDC PO ONE (13:00)
[2020-01-02 15:30] VITALS: BP 107/73
[2020-01-02] MEDS: HEPARIN 25,000 UNITS/250ML PMX 250 ML IV PRN (16:27)
[2020-01-02 16:30] VITALS: BP 120/82
[2020-01-02] MEDS ORDERED: WARFARIN 5 MG TABLET PO-COUM ONE (18:00)
[2020-01-02] MEDS ORDERED: LORATADINE 10 MG TABLET ONE (18:11)
[2020-01-02] MEDS: LORATADINE 10 MG TABLET PO SCH (18:13)
[2020-01-02] MEDS ORDERED: DIPHENHYDRAMINE 50 MG/ML, 1ML IVPush PRN (18:30)
[2020-01-02 22:00] VITALS: BP 150/90
[2020-01-02] MEDS: MELATONIN 5 MG TABLET PO SCH (22:04)
[2020-01-03] MEDS: SODIUM CHLORIDE 1 GM TABLET PO SCH ×6 (01:54→21:45)
[2020-01-03] MEDS: OXYcodone/APAP 10/325MG TABLET PO PRN ×2 (02:00→16:05)
[2020-01-03 02:02] VITALS: BP 126/91
[2020-01-03 05:29] LABS: INTERNATIONAL NORMALIZED RATIO 2.73 (0.93-1.1); PROTHROMBIN TIME 29.2 Seconds (9.6-11.5)
[2020-01-03 05:34] LABS: ANION GAP 8 mmol/L (5-15); CALCIUM 8.1 mg/dL (8.5-10.1); CHLORIDE 105 mmol/L (98-107); CREATININE 0.53 mg/dL (0.7-1.3)
[2020-01-03] MEDS: SOTALOL 80MG TABLET PO SCH ×2 (06:19→17:32)
[2020-01-03] MEDS: CEFAZOLIN PMX 2GM/50ML 50 ML IVPB SCH ×3 (06:19→21:45)
[2020-01-03 07:49] VITALS: BP 162/88
[2020-01-03] MEDS: HEPARIN 25,000 UNITS/250ML PMX 250 ML IV PRN (08:47)
[2020-01-03] MEDS: AMLODIPINE 5 MG TABLET PO SCH (08:48)
[2020-01-03] MEDS: POTASSIUM CHLORIDE 20 MEQ TAB.ER.PRT PO SCH ×2 (08:48→17:32)
[2020-01-03] MEDS: LISINOPRIL 40 MG TABLET PO SCH ×2 (08:48→21:45)
[2020-01-03] MEDS: LORATADINE 10 MG TABLET PO SCH (08:48)
[2020-01-03] MEDS: DOXAZOSIN 2MG TABLET PO SCH (08:48)
[2020-01-03] MEDS: LEVETIRACETAM 500 MG TABLET PO SCH ×2 (08:48→21:45)
[2020-01-03] MEDS: METHIMAZOLE 5 MG TAB PO SCH (08:50)
[2020-01-03] MEDS: SENNA/DOCUSATE TABLET PO SCH (08:51)
[2020-01-03] MEDS: BACITRACIN OINT 500U/GM, 28GM TP SCH ×2 (08:51→21:00)
[2020-01-03 10:15] VITALS: BP 142/85
[2020-01-03] MEDS: HEPARIN 5,000 UNITS/ML, 1ML IV PRN (11:42)
[2020-01-03 13:17] VITALS: BP 152/89
[2020-01-03] MEDS: hydrALAzine 20 MG/ML, 1ML IVPush PRN (15:57)
[2020-01-03] MEDS ORDERED: WARFARIN 5 MG TABLET PO-COUM ONE (18:00)
[2020-01-03 20:07] VITALS: BP 119/73
[2020-01-03] MEDS: MELATONIN 5 MG TABLET PO SCH (21:45)
[2020-01-04] MEDS: SODIUM CHLORIDE 1 GM TABLET PO SCH ×6 (01:47→22:47)
[2020-01-04 01:51] VITALS: BP 146/87
[2020-01-04 04:22] VITALS: BP 149/79
[2020-01-04 05:12] LABS: BASOPHILS # (AUTO) 0.03 x10^3/uL (0-0.1); BASOPHILS % (AUTO) 1 % (0-1); EOSINOPHILS # (AUTO) 0.16 x10^3/uL (0-0.4); EOSINOPHILS % (AUTO) 3 % (1-7); INTERNATIONAL NORMALIZED RATIO 2.57 (0.93-1.1); LYMPHOCYTES # (AUTO) 0.98 x10^3/uL (1-3.4); LYMPHOCYTES % (AUTO) 20 % (22-44); MD NO; MEAN CORPUSCULAR HEMOGLOBIN 30.2 pg (27.5-34.5); MEAN CORPUSCULAR HGB CONC 33.6 g/dL (33.2-36.2); MEAN CORPUSCULAR VOLUME 89.9 fL (81-97); MEAN PLATELET VOLUME 7.6 fL (7.4-10.4); MONOCYTES # (AUTO) 0.48 x10^3/uL (0.2-0.8); MONOCYTES % (AUTO) 10 % (2-9); NEUTROPHILS # (AUTO) 3.17 x10^3/uL (1.8-6.8); NEUTROPHILS % (AUTO) 66 % (42-75); PLATELET COUNT 278 x10^3/uL (130-400); PROTHROMBIN TIME 27.5 Seconds (9.6-11.5); RED BLOOD COUNT 3.47 x10^6/uL (4.38-5.82); RED CELL DISTRIBUTION WIDTH 13.6 % (9.4-14.8)
[2020-01-04 05:15] LABS: ALANINE AMINOTRANSFERASE 29 U/L (12-78); ALBUMIN 2.7 g/dL (3.4-5.0); ANION GAP 6 mmol/L (5-15); CALCIUM 8.1 mg/dL (8.5-10.1); CHLORIDE 104 mmol/L (98-107); CREATININE 0.65 mg/dL (0.7-1.3)
[2020-01-04 05:18] LABS: ALKALINE PHOSPHATASE 76 U/L (45-117); BILIRUBIN,TOTAL 0.4 mg/dL (0.2-1.0); TOTAL PROTEIN 5.8 g/dL (6.4-8.2)
[2020-01-04] MEDS: CEFAZOLIN PMX 2GM/50ML 50 ML IVPB SCH ×3 (05:59→22:44)
[2020-01-04] MEDS: SOTALOL 80MG TABLET PO SCH ×2 (05:59→18:02)
[2020-01-04 07:17] VITALS: BP 155/83
[2020-01-04] MEDS ORDERED: AMLODIPINE 10 MG TAB PO SCH (09:00)
[2020-01-04] MEDS: LEVETIRACETAM 500 MG TABLET PO SCH ×2 (09:03→22:44)
[2020-01-04] MEDS: METHIMAZOLE 5 MG TAB PO SCH (09:04)
[2020-01-04] MEDS: LISINOPRIL 40 MG TABLET PO SCH ×2 (09:04→21:00)
[2020-01-04] MEDS: POTASSIUM CHLORIDE 20 MEQ TAB.ER.PRT PO SCH ×2 (09:04→18:02)
[2020-01-04] MEDS: DOXAZOSIN 2MG TABLET PO SCH (09:04)
[2020-01-04] MEDS: LORATADINE 10 MG TABLET PO SCH (09:04)
[2020-01-04] MEDS: OXYcodone/APAP 10/325MG TABLET PO PRN (09:04)
[2020-01-04] MEDS: BACITRACIN OINT 500U/GM, 28GM TP SCH ×2 (09:05→21:00)
[2020-01-04] MEDS: SENNA/DOCUSATE TABLET PO SCH (09:05)
[2020-01-04 12:57] VITALS: BP 135/87
[2020-01-04 13:27] LABS: BASOPHILS # (AUTO) 0.02 x10^3/uL (0-0.1); BASOPHILS % (AUTO) 1 % (0-1); EOSINOPHILS # (AUTO) 0.16 x10^3/uL (0-0.4); EOSINOPHILS % (AUTO) 3 % (1-7); LYMPHOCYTES # (AUTO) 0.99 x10^3/uL (1-3.4); LYMPHOCYTES % (AUTO) 20 % (22-44); MD NO; MEAN CORPUSCULAR HEMOGLOBIN 30.2 pg (27.5-34.5); MEAN CORPUSCULAR HGB CONC 33.4 g/dL (33.2-36.2); MEAN CORPUSCULAR VOLUME 90.4 fL (81-97); MEAN PLATELET VOLUME 7.4 fL (7.4-10.4); MONOCYTES # (AUTO) 0.52 x10^3/uL (0.2-0.8); MONOCYTES % (AUTO) 11 % (2-9); NEUTROPHILS # (AUTO) 3.23 x10^3/uL (1.8-6.8); NEUTROPHILS % (AUTO) 66 % (42-75); PLATELET COUNT 279 x10^3/uL (130-400); RED BLOOD COUNT 3.61 x10^6/uL (4.38-5.82); RED CELL DISTRIBUTION WIDTH 14.1 % (9.4-14.8)
[2020-01-04] MEDS ORDERED: WARFARIN 10 MG TABLET PO-COUM ONE (18:00)
[2020-01-04 20:39] VITALS: BP 108/81
[2020-01-04 20:53] VITALS: BP_SYST 122; BP_SYST 93; BP_DIAS 65; BP_DIAS 68
[2020-01-04] MEDS: MELATONIN 5 MG TABLET PO SCH (22:44)
[2020-01-04] MEDS: ACETAMINOPHEN 325 MG TABLET PO PRN (23:31)
[2020-01-05 00:34] VITALS: BP 115/78
[2020-01-05] MEDS: SODIUM CHLORIDE 1 GM TABLET PO SCH ×4 (02:08→19:49)
[2020-01-05] MEDS: OXYcodone/APAP 10/325MG TABLET PO PRN ×2 (02:50→06:11)
[2020-01-05 05:43] LABS: INTERNATIONAL NORMALIZED RATIO 2.5 (0.93-1.1); PROTHROMBIN TIME 26.8 Seconds (9.6-11.5)
[2020-01-05 05:47] LABS: ALBUMIN 2.7 g/dL (3.4-5.0); ANION GAP 8 mmol/L (5-15); CALCIUM 8.5 mg/dL (8.5-10.1); CHLORIDE 105 mmol/L (98-107)
[2020-01-05 05:51] LABS: ALANINE AMINOTRANSFERASE 60 U/L (12-78); ALKALINE PHOSPHATASE 85 U/L (45-117); BILIRUBIN,TOTAL 0.4 mg/dL (0.2-1.0); CREATININE 0.59 mg/dL (0.7-1.3)
[2020-01-05] MEDS: SOTALOL 80MG TABLET PO SCH ×2 (06:12→18:13)
[2020-01-05] MEDS: CEFAZOLIN PMX 2GM/50ML 50 ML IVPB SCH ×3 (06:24→22:34)
[2020-01-05] MEDS ORDERED: LORazepam 0.5MG TABLET PO PRN (06:30)
[2020-01-05 07:20] VITALS: BP 110/78
[2020-01-05] MEDS ORDERED: HALOPERIDOL 5 MG/ML IM PRN (08:30)
[2020-01-05] MEDS: LISINOPRIL 40 MG TABLET PO SCH ×2 (09:00→11:34)
[2020-01-05] MEDS: POTASSIUM CHLORIDE 20 MEQ TAB.ER.PRT PO SCH ×2 (09:00→11:42)
[2020-01-05] MEDS: AMLODIPINE 5 MG TABLET PO SCH (11:34)
[2020-01-05] MEDS: DOXAZOSIN 2MG TABLET PO SCH (11:34)
[2020-01-05] MEDS: LORATADINE 10 MG TABLET PO SCH (11:35)
[2020-01-05] MEDS: LEVETIRACETAM 500 MG TABLET PO SCH ×2 (11:35→19:49)
[2020-01-05] MEDS: METHIMAZOLE 5 MG TAB PO SCH (11:35)
[2020-01-05] MEDS: SENNA/DOCUSATE TABLET PO SCH (11:36)
[2020-01-05] MEDS: BACITRACIN OINT 500U/GM, 28GM TP SCH ×2 (11:43→19:53)
[2020-01-05 12:55] VITALS: BP 138/77
[2020-01-05] MEDS: ACETAMINOPHEN 325 MG TABLET PO PRN ×2 (13:01→23:13)
[2020-01-05] MEDS ORDERED: WARFARIN 10 MG TABLET PO-COUM ONE (18:00)
[2020-01-05 18:14] VITALS: BP 106/66
[2020-01-05 19:52] VITALS: BP 105/71
[2020-01-05] MEDS: MELATONIN 5 MG TABLET PO SCH (21:16)
[2020-01-06] MEDS: SODIUM CHLORIDE 1 GM TABLET PO SCH ×7 (01:00→23:23)
[2020-01-06] MEDS: OXYcodone/APAP 10/325MG TABLET PO PRN (03:27)
[2020-01-06 03:28] VITALS: BP 137/88
[2020-01-06 05:17] LABS: INTERNATIONAL NORMALIZED RATIO 3.78 (0.93-1.1); PROTHROMBIN TIME 40.6 Seconds (9.6-11.5)
[2020-01-06] MEDS: CEFAZOLIN PMX 2GM/50ML 50 ML IVPB SCH ×3 (06:40→22:46)
[2020-01-06] MEDS ORDERED: HOLD COUMADIN MC PRN (07:30)
[2020-01-06 07:35] VITALS: BP 127/82
[2020-01-06] MEDS: METHIMAZOLE 5 MG TAB PO SCH (10:49)
[2020-01-06] MEDS: DOXAZOSIN 2MG TABLET PO SCH (10:50)
[2020-01-06] MEDS: POTASSIUM CHLORIDE 20 MEQ TAB.ER.PRT PO SCH (10:50)
[2020-01-06] MEDS: SENNA/DOCUSATE TABLET PO SCH (10:50)
[2020-01-06] MEDS: LISINOPRIL 40 MG TABLET PO SCH (10:50)
[2020-01-06] MEDS: LORATADINE 10 MG TABLET PO SCH (10:50)
[2020-01-06] MEDS: AMLODIPINE 5 MG TABLET PO SCH (10:50)
[2020-01-06] MEDS: LEVETIRACETAM 500 MG TABLET PO SCH ×2 (10:50→21:02)
[2020-01-06] MEDS: SOTALOL 80MG TABLET PO SCH ×2 (10:51→21:00)
[2020-01-06] MEDS: BACITRACIN OINT 500U/GM, 28GM TP SCH ×2 (10:56→21:00)
[2020-01-06 13:25] VITALS: BP 112/74
[2020-01-06] MEDS: ACETAMINOPHEN 325 MG TABLET PO PRN ×2 (14:58→21:18)
[2020-01-06 21:02] VITALS: BP 122/79
[2020-01-06] MEDS: MELATONIN 5 MG TABLET PO SCH (21:02)
[2020-01-07] MEDS: SODIUM CHLORIDE 1 GM TABLET PO SCH ×5 (03:04→20:33)
[2020-01-07] MEDS: OXYcodone/APAP 10/325MG TABLET PO PRN (03:05)
[2020-01-07 03:38] VITALS: BP 135/82
[2020-01-07 05:59] VITALS: BP 128/82
[2020-01-07] MEDS: SOTALOL 80MG TABLET PO SCH ×2 (06:00→17:27)
[2020-01-07] MEDS: CEFAZOLIN PMX 2GM/50ML 50 ML IVPB SCH ×3 (06:00→22:03)
[2020-01-07 06:34] LABS: INTERNATIONAL NORMALIZED RATIO 2.57 (0.93-1.1); PROTHROMBIN TIME 27.5 Seconds (9.6-11.5)
[2020-01-07 07:40] VITALS: BP 114/78
[2020-01-07] MEDS: LEVETIRACETAM 500 MG TABLET PO SCH ×2 (09:32→20:32)
[2020-01-07] MEDS: AMLODIPINE 5 MG TABLET PO SCH (09:32)
[2020-01-07] MEDS: DOXAZOSIN 2MG TABLET PO SCH (09:32)
[2020-01-07] MEDS: LORATADINE 10 MG TABLET PO SCH (09:33)
[2020-01-07] MEDS: LISINOPRIL 40 MG TABLET PO SCH (09:33)
[2020-01-07] MEDS: METHIMAZOLE 5 MG TAB PO SCH (09:33)
[2020-01-07] MEDS: POTASSIUM CHLORIDE 20 MEQ TAB.ER.PRT PO SCH (09:33)
[2020-01-07] MEDS: SENNA/DOCUSATE TABLET PO SCH (09:47)
[2020-01-07] MEDS: BACITRACIN OINT 500U/GM, 28GM TP SCH ×2 (09:47→22:04)
[2020-01-07] MEDS: ACETAMINOPHEN 325 MG TABLET PO PRN ×2 (09:51→19:06)
[2020-01-07 12:53] VITALS: BP 113/83
[2020-01-07 17:26] VITALS: BP 124/78
[2020-01-07] MEDS ORDERED: WARFARIN 7.5 MG TABLET PO-COUM ONE (18:00)
[2020-01-07 18:10] VITALS: BP 111/74
[2020-01-07] MEDS: MELATONIN 5 MG TABLET PO SCH (20:32)
[2020-01-08] MEDS: SODIUM CHLORIDE 1 GM TABLET PO SCH ×7 (01:15→20:28)
[2020-01-08 01:35] VITALS: BP 94/66
[2020-01-08] MEDS: SOTALOL 80MG TABLET PO SCH ×2 (05:15→17:41)
[2020-01-08 07:28] VITALS: BP 125/76
[2020-01-08] MEDS: SENNA/DOCUSATE TABLET PO SCH (07:29)
[2020-01-08] MEDS: ACETAMINOPHEN 325 MG TABLET PO PRN ×3 (07:29→21:12)
[2020-01-08] MEDS: METHIMAZOLE 5 MG TAB PO SCH (07:30)
[2020-01-08] MEDS: LEVETIRACETAM 500 MG TABLET PO SCH ×2 (07:30→20:29)
[2020-01-08] MEDS: LISINOPRIL 40 MG TABLET PO SCH (07:30)
[2020-01-08] MEDS: POTASSIUM CHLORIDE 20 MEQ TAB.ER.PRT PO SCH ×2 (07:30→09:54)
[2020-01-08] MEDS: DOXAZOSIN 2MG TABLET PO SCH (07:30)
[2020-01-08] MEDS: LORATADINE 10 MG TABLET PO SCH (07:30)
[2020-01-08] MEDS: AMLODIPINE 5 MG TABLET PO SCH (07:31)
[2020-01-08] MEDS: BACITRACIN OINT 500U/GM, 28GM TP SCH ×2 (07:33→20:29)
[2020-01-08 08:21] LABS: INTERNATIONAL NORMALIZED RATIO 2.22 (0.93-1.1); PROTHROMBIN TIME 23.7 Seconds (9.6-11.5)
[2020-01-08 08:34] LABS: ALANINE AMINOTRANSFERASE 53 U/L (12-78); ALBUMIN 3.2 g/dL (3.4-5.0); ANION GAP 4 mmol/L (5-15); CHLORIDE 107 mmol/L (98-107); CREATININE 0.75 mg/dL (0.7-1.3)
[2020-01-08 08:36] LABS: ALKALINE PHOSPHATASE 102 U/L (45-117); BILIRUBIN,TOTAL 0.4 mg/dL (0.2-1.0)
[2020-01-08 13:43] VITALS: BP 73/56
[2020-01-08 13:52] VITALS: BP 109/72
[2020-01-08] MEDS ORDERED: WARFARIN 5 MG TABLET PO-COUM ONE (17:33)
[2020-01-08 17:36] VITALS: BP 102/62
[2020-01-08] MEDS ORDERED: WARFARIN 10 MG TABLET PO-COUM ONE (18:00)
[2020-01-08 19:19] VITALS: BP 93/68
[2020-01-08] MEDS: MELATONIN 5 MG TABLET PO SCH (20:29)
[2020-01-09] MEDS: SODIUM CHLORIDE 1 GM TABLET PO SCH ×4 (02:28→12:58)
[2020-01-09 02:30] VITALS: BP 105/72
[2020-01-09 05:39] LABS: INTERNATIONAL NORMALIZED RATIO 2.64 (0.93-1.1); PROTHROMBIN TIME 28.3 Seconds (9.6-11.5)
[2020-01-09 05:43] LABS: ANION GAP 7 mmol/L (5-15); CHLORIDE 107 mmol/L (98-107); CREATININE 0.75 mg/dL (0.7-1.3)
[2020-01-09] MEDS: SOTALOL 80MG TABLET PO SCH (06:15)
[2020-01-09] MEDS: ACETAMINOPHEN 325 MG TABLET PO PRN (06:37)
[2020-01-09 08:00] VITALS: BP 104/68
[2020-01-09] MEDS: SENNA/DOCUSATE TABLET PO SCH (08:57)
[2020-01-09] MEDS: DOXAZOSIN 2MG TABLET PO SCH (08:57)
[2020-01-09] MEDS: POTASSIUM CHLORIDE 20 MEQ TAB.ER.PRT PO SCH (08:57)
[2020-01-09] MEDS: LORATADINE 10 MG TABLET PO SCH (08:57)
[2020-01-09] MEDS: LEVETIRACETAM 500 MG TABLET PO SCH (08:58)
[2020-01-09] MEDS: METHIMAZOLE 5 MG TAB PO SCH (08:58)
[2020-01-09] MEDS: AMLODIPINE 5 MG TABLET PO SCH (09:00)
[2020-01-09] MEDS: LISINOPRIL 40 MG TABLET PO SCH (09:03)
[2020-01-09] MEDS: BACITRACIN OINT 500U/GM, 28GM TP SCH (09:09)
[2020-01-09] MEDS ORDERED: DOXA2TAB9 PO (09:25)
[2020-01-09] MEDS ORDERED: SODI1TAB PO (09:25)
[2020-01-09] MEDS ORDERED: LISI-170 PO (09:25)
[2020-01-09] MEDS ORDERED: ACET325T26 PO (09:25)
[2020-01-09] MEDS ORDERED: SOTA80TA18 PO (09:25)
[2020-01-09] MEDS ORDERED: LEVE500T53 PO (09:25)
[2020-01-09] MEDS ORDERED: METH5TAB6 PO (09:26)
[2020-01-09 14:00] VITALS: BP 124/69
[2020-01-10] MEDS ORDERED: LISINOPRIL 20 MG TABLET PO SCH (09:00)
== END 2020-01-09 14:30 | DRG 23 ==
LOC: ED 09:34 → CCU 13:27 → 5SO 01-02 15:18 → 4NE 01-07 18:01
PROVIDERS: ADMIT Hospitalist; ATTEND Internal Medicine
PROC: 009630Z Drainage of Cerebral Ventricle with Drainage Device, Percutaneous Approach (ICD-10-PCS; 2019-12-20)
PROC: 00H632Z Insertion of Monitoring Device into Cerebral Ventricle, Percutaneous Approach (ICD-10-PCS; 2019-12-20)
PROC: 4A103BD Monitoring of Intracranial Pressure, Percutaneous Approach (ICD-10-PCS; 2019-12-20)
PROC: 03HY32Z Insertion of Monitoring Device into Upper Artery, Percutaneous Approach (ICD-10-PCS; 2019-12-20)
PROC: 30233K1 Transfusion of Nonautologous Frozen Plasma into Peripheral Vein, Percutaneous Approach (ICD-10-PCS; principal; 2019-12-20 10:30)
PROC: 00C70ZZ Extirpation of Matter from Cerebral Hemisphere, Open Approach (ICD-10-PCS; 2019-12-29)
PROC: 0WP Anatomical Regions, General, Removal (ICD-10-PCS; 2019-12-29)
PROC: 009630Z Drainage of Cerebral Ventricle with Drainage Device, Percutaneous Approach (ICD-10-PCS; 2019-12-29)
DX: I61.1 Nontraumatic intracerebral hemorrhage in hemisphere, cortical (principal); G93.41 Metabolic encephalopathy; G93.6 Cerebral edema; G91.1 Obstructive hydrocephalus; I48.19 Other persistent atrial fibrillation; I82.612 Acute embolism and thrombosis of superficial veins of left upper extremity; I61.5 Nontraumatic intracerebral hemorrhage, intraventricular; D64.9 Anemia, unspecified; D72.829 Elevated white blood cell count, unspecified; E04.1 Nontoxic single thyroid nodule; E26.9 Hyperaldosteronism, unspecified; E87.6 Hypokalemia; I05.0 Rheumatic mitral stenosis; I10 Essential (primary) hypertension; Z20.828 Contact with and (suspected) exposure to other viral communicable diseases; E05.00 Thyrotoxicosis with diffuse goiter without thyrotoxic crisis or storm; R45.87 Impulsiveness; F17.220 Nicotine dependence, chewing tobacco, uncomplicated; Z79.01 Long term (current) use of anticoagulants; Z95.0 Presence of cardiac pacemaker; Z95.2 Presence of prosthetic heart valve; Z88.8 Allergy status to other drugs, medicaments and biological substances; Z72.89 Other problems related to lifestyle; E05.90 Thyrotoxicosis, unspecified without thyrotoxic crisis or storm
CPT/HCPCS: 36415; 89051; 96374; 96376; 99291; J3490; 70450; 70496; 71045; 76536; 80048; 80053; 81001; 81003; 82945; 82962; 83036; 83735; 84133; 84157; 84295; 84439; 84443; 84481; 85025; 85520; 85610; 85730; 86850; 86900; 87070; 87075; 87081; 87102; 87116; 87205; 87206; 87635; 88305; 93005; 93970; 95819; C1713; G0378; J0690; J1100; J1644; J1953; J2185; J2250; J2405; J2704; J2710; J3010; J3430; J3480; J7189; Q9967; 92523-GN; C1781; C9113; J0330; J0360; J1940; J2370; J3475; J7030; J7050; P9017

== ENCOUNTER → 2020-01-29 | Outpatient (CLI) | payer OTHER ==
[~2020-01-29] MED LIST changes: +ACET325T26 PO; +DOXA2TAB9 PO; +LEVE500T53 PO; +LISI-170 PO; +METH5TAB6 PO; +SODI1TAB PO; +SOTA80TA18 PO
== END | disposition home or self-care (01) ==
LOC: CFH 13:55
PROVIDERS: ATTEND Neurological Surgery
DX: I61.8 Other nontraumatic intracerebral hemorrhage (principal); G93.89 Other specified disorders of brain
CPT/HCPCS: 70450